=== PATIENT | female | born 1990 | race Caucasian/White ===

== ENCOUNTER 2019-07-27 17:26 | Emergency (ER) | payer OTHER ==
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
[2019-07-27 18:06] LABS: MUDS CUTOFF CONCENTRATIONS CUTOFF CONC BELOW:
[2019-07-27 18:07] LABS: BILIRUBIN,URINE NEGATIVE (NEGATIVE); GLUCOSE, URINE (UA) NEGATIVE (NEGATIVE); KETONES,URINE (UA) NEGATIVE (NEGATIVE); LEUKOCYTE ESTERASE, URINE NEGATIVE (NEGATIVE); NITRITE,URINE NEGATIVE (NEGATIVE); OCCULT BLOOD,URINE SMALL (NEGATIVE); PROTEIN,URINE NEGATIVE (NEGATIVE); UROBILINOGEN,URINE 0.2 (NORMAL) E.U./dL (NORMAL)
[2019-07-27 18:11] LABS: CLARITY,URINE HAZY (CLEAR); HCG UR QUAL NEGATIVE
[2019-07-27 18:12] LABS: BASOPHILS # (AUTO) 0.1 10^3/uL (0.0-0.1); EOSINOPHILS # (AUTO) 0.2 10^3/uL (0.0-0.7); EOSINOPHILS % (AUTO) 2.6 %; LYMPHOCYTES % (AUTO) 50.2 %; MEAN CORPUSCULAR HGB CONC 33.2 g/dL (32.0-36.0); MEAN CORPUSCULAR VOLUME 96.4 fL (81.0-99.0); MONOCYTES # (AUTO) 0.5 10^3/uL (0.0-1.0); MONOCYTES % (AUTO) 8.9 %; NEUTROPHILS # (AUTO) 2.2 10^3/uL (1.5-6.6); PLT - PLATELET COUNT 366 10^3/uL (130-450); RED BLOOD COUNT 4.69 10^6/uL (4.20-5.40); RED CELL DISTRIBUTION WIDTH 12.3 % (12.0-15.0); WHITE BLOOD COUNT 6.1 x10^3/uL (4.8-10.8)
[2019-07-27 18:17] LABS: BACTERIA,URINE Rare /HPF (None Seen); RBC,URINE 0-5 /HPF (0-5); SQUAMOUS EPITHELIAL CELL,UR FEW Squamous (<= Few)
[2019-07-27 18:20] LABS: AMPHETAMINE SCREEN,URINE NEGATIVE (NEGATIVE); BENZODIAZEPINES SCREEN, URINE NEGATIVE (NEGATIVE); COCAINE SCREEN URINE NEGATIVE (NEGATIVE); METHADONE SCREEN, URINE NEGATIVE (NEGATIVE); METHAMPHETAMINES SCREEN, URINE NEGATIVE (NEGATIVE); OPIATE SCREEN, URINE NEGATIVE (NEGATIVE); OXYCODONE SCREEN, URINE NEGATIVE (NEGATIVE); PROPOXYPHENE SCREEN, URINE NEGATIVE (NEGATIVE); TRICYCLIC ANTIDEPRESSANT,URINE NEGATIVE (NEGATIVE)
[2019-07-27 18:28] LABS: ACETAMINOPHEN < 10 ug/mL (10-30); ALBUMIN 4.5 g/dL (3.2-5.5); ALBUMIN/GLOBULIN RATIO 1.3 (1.0-2.2); ALKALINE PHOSPHATASE 91 IU/L (42-121); ALT ALANINE AMINOTRANSFERASE 23 IU/L (10-60); AST ASPARTATE AMINOTRANSFERASE 23 IU/L (10-42); BILIRUBIN,TOTAL 0.4 mg/dL (0.2-1.0); BUN - BLOOD UREA NITROGEN 13 mg/dL (6-20); CALCIUM 8.4 mg/dL (8.5-10.3); CARBON DIOXIDE - CO2 28 mmol/L (21-32); CHLORIDE 109 mmol/L (101-111); CREATININE 0.8 mg/dL (0.4-1.0); GFR - MDRD 84 (>89); GLUCOSE 94 mg/dL (70-100); LIPASE 37 U/L (22-51); SALICYLATE < 6.0 mg/dL; SODIUM 143 mmol/L (135-145)
--- NOTE | 2019-07-28 14:37 | ED Physician Documentation ---
ED Addendum - Addendum Addendum: 07/28/19 14:37 Patient accepted to [facility] by Dr. Montelongo 1425. COBRA forms filled out. This document was made in part using voice recognition software. While efforts are made to proofread this document, sound alike and grammatical errors may occur. 07/28/19 14:37 Departure - Departure Disposition: [facility]Unit DC/Xfer Clinical Impression: Suicidal ideation Condition: Stable
[2019-07-28 16:44] VITALS: BP 127/62
== END 2019-07-28 17:01 ==
LOC: ED 17:26
DX: F32.9 Major depressive disorder, single episode, unspecified (principal); R45.851 Suicidal ideations
CPT/HCPCS: 36415; 80053; 80306; 80307; 80320; 80329; 81001; 81003; 81025; 83690; 84443; 85025; 87086; 99283; 99285

== ENCOUNTER 2021-11-19 09:20 | Emergency (ER) | payer OTHER ==
[2021-11-19] MEDS ORDERED: HYDROcod/ACETAM 5/325 MG TABLET PO STA (10:09)
[2021-11-19] MEDS ORDERED: DEXAMETHASONE 10 MG/ML VIAL PO STA (10:09)
[2021-11-19] MEDS ORDERED: CHERRY SYRUP 10 ML UDC PO ONE (10:09)
[2021-11-19] MEDS ORDERED: ONDANSETRON ODT 4 MG TABLET TL STA (10:09)
--- NOTE | 2021-11-19 10:11 | ED Physician Documentation ---
PD HPI HEADACHE - Stated complaint Stated Complaint: HEADACHES,NAUSEA - Chief complaint Chief Complaint: Neuro - History obtained from History obtained from: Patient - History of Present Illness Timing - onset: How many days ago (2) Timing - onset during: Rest, Light activity Timing - duration: Days (2) Timing - details: Gradual onset, Still present, Waxing and waning Worst headache ever?: No: Worst headache ever? Location: Front Quality: Throbbing, Aching Associated symptoms: Nausea. No: Fever, Weakness, Numbness, Vision changes Improved by: No: Dark room Worsened by: No: Light Contributing factors: Recent illness (her spouse has had URI symptoms for several days, and patient feels she likely has viral illness causing symptoms. No history of migraines. [place] ill enough to not go to work, so mainly here for work note and eval. Declines IV/IM meds.) Similar symptoms before: Has not had sx before Recently seen: Not recently seen Review of Systems Constitutional: reports: Myalgias. denies: Fever, Chills Eyes: denies: Decreased vision, Photophobia Nose: reports: Sinus pressure / pain. denies: Rhinorrhea / runny nose, Congestion Throat: denies: Sore throat Respiratory: denies: Cough GI: reports: Nausea Neurologic: reports: Headache (frontal). denies: Focal weakness, Numbness PD PAST MEDICAL HISTORY - Past Medical History Past Medical History: Yes Cardiovascular: None Neuro: None Psych: Depression - Past Surgical History Past Surgical History: No - Present Medications Home Medications: Ambulatory Orders Medication Instructions Recorded Confirmed HYDROcod/ACETAM 5/325 [[place] 5/325] 1 ea PO Q6H PRN #10 tablet 11/19/21 Ondansetron Odt [Zofran] 4 mg TL Q6H PRN #10 tablet 11/19/21 dexAMETHasone [Decadron] 4 mg PO DAILY #3 tablet 11/19/21 - Allergies Allergies/Adverse Reactions: Allergies Allergy/AdvReac Type Severity Reaction Status Date / Time No Known Drug Allergies Allergy Verified 07/27/19 17:37 - Social History Does the pt smoke?: No Smoking Status: Never smoker Does the pt drink ETOH?: Yes Does the pt have substance abuse?: No PD ED PE NORMAL - Vitals Vital signs reviewed: Yes - General General: Alert and oriented X 3, No acute distress, Well developed/nourished - HEENT HEENT: PERRL, EOMI, Ears normal, Pharynx benign - Neck Neck: Supple, no meningeal sign, No adenopathy - Cardiac Cardiac: RRR, No murmur - Respiratory Respiratory: Clear bilaterally - Abdomen Abdomen: Soft, Non tender - Derm Derm: Normal color, Warm and dry - Neuro Neuro: Alert and oriented X 3, No motor deficit, Normal speech Eye Opening: Spontaneous Motor: Obeys Commands Verbal: Oriented GCS Score: 15 Results - Vitals Vitals: Oxygen O2 Source Room air PD MEDICAL DECISION MAKING - ED course Complexity details: considered differential (could be vascular such as migraine. Consider viral illness as patient suspects. ), d/w patient Departure - Departure Disposition: 01 Home, Self Care Clinical Impression: Frontal headache Nausea & vomiting Qualifiers: Vomiting type: unspecified Qualified Code(s): R11.2 - Nausea with vomiting, unspecified Condition: Stable Record reviewed to determine appropriate education?: Yes Instructions: ED Cephalgia Unspecified Follow-Up: [facility] [Provider Group] Prescriptions: dexAMETHasone [Decadron] 4 mg PO DAILY #3 tablet HYDROcod/ACETAM 5/325 [[place] 5/325] 1 ea PO Q6H PRN #10 tablet PRN Reason: Pain Ondansetron Odt [Zofran] 4 mg TL Q6H PRN #10 tablet PRN Reason: Nausea / Vomiting Comments: For now we will treat this as either a sinus headache with inflammation in the sinuses versus a functional headache such as migraine. We would treat these with nausea medicine anti-inflammatory and something for pain. I wrote prescriptions for Decadron steroid daily for 3 more days as well as ondansetron every 6 hours if needed for nausea. To that add Tylenol every 4-6 hours for headache or hydrocodone if needed for worse headache. Off work today and possibly tomorrow until this is improved. Return if persistent despite medications or if you develop worsening headache or other associated symptoms such as vision loss, focal weakness, fever, confusion or other concerns. [facility] I am prescribing a short course of narcotic pain medication for you. These are potentially dangerous and addictive medications that should be used carefully. These medications may constipate you. Take an [id number] stool softener such as docusate twice daily with plenty of water while taking these m edications. If you go 24 hours without a bowel movement, take [id number] MiraLAX, per package instructions. Do not drink or drive while taking these medications. If you received narcotic or sedating medications while in the emergency department do not drive for 24 hours. Store this medication in a safe, secure place and out of reach of children. It is a violation of federal law to give or sell this medication to another person or to use in a manner other than prescribed. The ED will not refill narcotic prescriptions, including prescriptions lost or stolen. You can dispose of unwanted medications at the [facility]'s office or at several pharmacies such as [facility]. Forms: Activity restrictions Discharge Date/Time: 11/19/21 10:26
[2021-11-19] MEDS ORDERED: ACETAMINOPHEN 325 MG TABLET PO STA (10:17)
[2021-11-19 10:26] VITALS: BP 124/74
== END 2021-11-19 10:26 | disposition home or self-care (01) ==
LOC: ED 09:20
DX: R51.9 Headache, unspecified (principal); R11.2 Nausea with vomiting, unspecified
CPT/HCPCS: 99282; 99283; A9270; Q0162

== ENCOUNTER 2022-10-28 07:13 | Emergency (ER) | payer OTHER ==
--- NOTE | 2022-10-28 07:41 | ED Physician Documentation ---
PD HPI NVD - Stated complaint Stated Complaint: VOMITING/FATIGUE/DIARRHEA - Chief complaint Chief Complaint: Abd Pain - History obtained from History obtained from: Patient - History of Present Illness Timing - onset: Yesterday Timing - details: Abrupt onset, Still present Associated symptoms: Abdominal pain (intermittent cramping) Contributing factors: Bad food (she states was at [employer] party 3 days ago but not aware of anyone else sick.). No: Sick contact, Travel Improved by: No: Vomiting Worsened by: Eating Similar symptoms before: Has not had sx before Review of Systems Constitutional: denies: Fever, Chills Nose: denies: Rhinorrhea / runny nose, Congestion Throat: denies: Sore throat Respiratory: denies: Cough GI: reports: Abdominal Pain (intermittent cramping, not consistent.), Nausea, Vomiting, Diarrhea (loose small amount). denies: Hematemesis PD PAST MEDICAL HISTORY - Past Medical History Cardiovascular: None Neuro: None Psych: Depression - Past Surgical History Past Surgical History: No - Present Medications Home Medications: Ambulatory Orders Medication Instructions Recorded Confirmed Ondansetron Odt [Zofran] 4 mg TL Q6H PRN #10 tablet 10/28/22 Promethazine [Phenergan] 25 mg PO Q6H PRN #10 tab 10/28/22 - Allergies Allergies/Adverse Reactions: Allergies Allergy/AdvReac Type Severity Reaction Status Date / Time No Known Drug Allergies Allergy Verified 10/28/22 07:33 - Social History Does the pt smoke?: No Smoking Status: Never smoker Does the pt drink ETOH?: Yes Does the pt have substance abuse?: No PD ED PE NORMAL - Vitals Vital signs reviewed: Yes - General General: Alert and oriented X 3, No acute distress, Well developed/nourished - Cardiac Cardiac: RRR (mild tachycardic), No murmur - Respiratory Respiratory: Clear bilaterally - Abdomen Abdomen: Normal bowel sounds, Soft, Non tender, Non distended, No organomegaly - Derm Derm: Normal color, Warm and dry Results - Vitals Vitals: Vital Signs - 24 hr 10/28/22 10/28/22 07:20 09:30 Temperature 36.8 C Heart Rate 104 H 86 Respiratory 14 16 Rate Blood Pressure 141/99 H 130/82 H O2 Saturation 98 96 Oxygen O2 Source Room air PD Medical Decision Making - ED course Complexity details: re-evaluated patient (patient prefers to try po meds and not iv fluids/meds. She did have vomiting soon after first dose of Zofran, but too soon to see if had effect. Given second dose and seemed a bit better, and able to take fluids. she prefers home with scripts and see how it goes for the morning/afternoon. ), considered differential (seems likely viral GE. No abd tenderness to suggest appendicitis, galllbladder, focal colitis, diverticulitis. Can treat with symptoms meds. Patient would rather not have IV. ), d/w patient Departure - Departure Disposition: Home, Self Care Clinical Impression: Nausea vomiting and diarrhea Condition: Stable Record reviewed to determine appropriate education?: Yes Instructions: ED Diet Vomiting Diarrhea Follow-Up: [facility] [Provider Group] Prescriptions: Promethazine [Phenergan] 25 mg PO Q6H PRN #10 tab PRN Reason: Nausea / Vomiting Ondansetron Odt [Zofran] 4 mg TL Q6H PRN #10 tablet PRN Reason: Nausea / Vomiting Comments: Presume this is a viral type illness and most commonly the symptoms will be just 2 or 3 days. Rest at home today and small frequent fluids and bland food. Ondansetron and/or Phenergan every 6 hours if needed for nausea. Antacid such as Maalox or Mylanta can be helpful as well for the upset stomach. Tylenol every 4-6 hours if needed for aches or fevers. Recheck if not improved over the next day or so. I sent your prescriptions to the [facility] pharmacy here in [place]. Forms: Activity restrictions Discharge Date/Time: 10/28/22 10:01
[2022-10-28] MEDS: ONDANSETRON ODT 4 MG TABLET TL STA ×2 (08:03→08:40)
[2022-10-28 09:31] VITALS: BP 130/82
[2022-10-28] MEDS: MAG HYDROX/AL HYDROX/SIMETH 30 ML UDC PO STA (09:33)
== END 2022-10-28 10:01 | disposition home or self-care (01) ==
LOC: ED 07:13
DX: R11.2 Nausea with vomiting, unspecified (principal); R10.9 Unspecified abdominal pain; R19.7 Diarrhea, unspecified
CPT/HCPCS: 99283; Q0162

== ENCOUNTER 2023-02-10 14:23 | Emergency (ER) | payer OTHER ==
[2023-02-10] MEDS ORDERED: SODIUM CHLORIDE 0.9% 1,000 ML IV STA (14:55)
[2023-02-10 14:58] LABS: BASOPHILS # (AUTO) 0.1 10^3/uL (0.0-0.1); BASOPHILS % (AUTO) 0.7 %; EOSINOPHILS % (AUTO) 0.4 %; HCT - HEMATOCRIT 45.8 % (37.0-47.0); HGB - HEMOGLOBIN 15.6 g/dL (12.0-16.0); LYMPHOCYTES # (AUTO) 2.1 10^3/uL (1.5-3.5); LYMPHOCYTES % (AUTO) 22.9 %; MEAN CORPUSCULAR HEMOGLOBIN 31.2 pg (27.0-31.0); MEAN CORPUSCULAR HGB CONC 34.1 g/dL (32.0-36.0); MEAN CORPUSCULAR VOLUME 91.6 fL (81.0-99.0); MONOCYTES # (AUTO) 0.6 10^3/uL (0.0-1.0); MONOCYTES % (AUTO) 7.1 %; NEUTROPHILS # (AUTO) 6.2 10^3/uL (1.5-6.6); NEUTROPHILS % (AUTO) 68.7 %; PLT - PLATELET COUNT 374 10^3/uL (130-450); RED CELL DISTRIBUTION WIDTH 12.2 % (12.0-15.0)
--- NOTE | 2023-02-10 14:59 | ED Physician Documentation ---
History of Present Illness - Stated complaint Stated Complaint: HEART PALPITATIONS - Chief complaint Chief Complaint: Cardiac - Additonal information Additional information: 33-year-old female presents to the emergency department for evaluation of nausea, tachycardia, dizziness and shaking. She states that the symptoms have been present for about 1 week. They started after she began taking citalopram 3 weeks ago for anxiety and depression. She does state that since beginning citalopram she has had increased anxiety depression and some passive thoughts of suicide but no plan. She also has started to drink heavier than she typically would. She consumed 750 mL of liquor yesterday evening. She states she is drinking on average of 500ml to 1 L of hard liquor every day or every other day for about the last 8 months. Denies any history of withdrawal symptoms with alcohol cessation. Patient last took her citalopram 4 days ago. Reports she had a manic episode and threw the pills away Patient is denying chest pain. She does have some mild shortness of air. Nonpleuritic. Review of Systems Constitutional: reports: Fever, Fatigue Cardiac: reports: Palpitations Respiratory: reports: Dyspnea. denies: Cough, Hemoptysis, Wheezing GI: reports: Reviewed and negative : reports: Reviewed and negative Skin: reports: Reviewed and negative PD PAST MEDICAL HISTORY - Past Medical History Cardiovascular: None Neuro: None Psych: Depression - Past Surgical History Past Surgical History: No - Present Medications Home Medications: Ambulatory Orders Medication Instructions Recorded Confirmed Ondansetron Odt [Zofran] 4 mg TL Q6H PRN #10 tablet 10/28/22 Promethazine [Phenergan] 25 mg PO Q6H PRN #10 tab 10/28/22 LORazepam [Lorazepam] 1 mg PO QID PRN #10 tab 02/10/23 - Allergies Allergies/Adverse Reactions: Allergies Allergy/AdvReac Type Severity Reaction Status Date / Time No Known Drug Allergies Allergy Verified 10/28/22 07:33 - Social History Does the pt smoke?: No Smoking Status: Never smoker Does the pt drink ETOH?: Yes Does the pt have substance abuse?: No PD ED PE NORMAL - General General: Alert and oriented X 3, No acute distress - HEENT HEENT: Atraumatic, Moist mucous membranes - Neck Neck: Supple, no meningeal sign, No adenopathy - Cardiac Cardiac: RRR (Sinus tachycardia on the monitor resting rate of 110.), No murmur, Strong equal pulses - Respiratory Respiratory: No respiratory distress, Clear bilaterally - Abdomen Abdomen: Normal bowel sounds, Soft - Back Back: No CVA TTP - Derm Derm: Normal color, Warm and dry, No rash - Extremities Extremities: No deformity - Neuro Neuro: Alert and oriented X 3, 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 Relevant findings are: Rate: Rate (enter#) (101) Rhythm: Sinus tachycardia [place]: RAD Intervals: Normal LA QRS: Normal Ischemia: Normal ST segments Compare to prior EKG: Old EKG unavailable Computer interpretation: Agree with computer - Labs Labs: Laboratory Tests 02/10/23 02/10/23 02/10/23 14:52 14:52 14:52 WBC 9.0 RBC 5.00 Hgb 15.6 Hct 45.8 MCV 91.6 MCH 31.2 H MCHC 34.1 RDW 12.2 Plt Count 374 MPV 10.0 Neut # (Auto) 6.2 Lymph # (Auto) 2.1 Bowman # (Auto) 0.6 Eos # (Auto) 0.0 Baso # (Auto) 0.1 Absolute Nucleated RBC 0.00 Nucleated RBC % 0.0 Sodium 138 Potassium 4.0 Chloride 104 Carbon Dioxide 24 Anion Gap 10.0 BUN 10 Creatinine 0.9 Estimated GFR (MDRD) 72 L Glucose 105 H Lactic Acid Calcium 8.9 Total Bilirubin 0.6 AST 47 H ALT 63 H Alkaline Phosphatase 77 Total Creatine Kinase 82 Total Protein 8.2 Albumin 4.3 Globulin 3.9 Albumin/Globulin Ratio 1.1 Lipase 26 TSH 2.60 Free T4 0.87 Salicylates < 6.0 Urine Opiates Screen Ur Oxycodone Screen Urine Methadone Screen Ur Propoxyphene Screen Acetaminophen < 10 L Ur Barbiturates Screen Ur Tricyclics Screen Ur Phencyclidine Scrn Ur Amphetamine Screen U Methamphetamines Scrn U Benzodiazepines Scrn Urine Cocaine Screen U Cannabinoids Screen Ethyl Alcohol < 5.0 02/10/23 02/10/23 14:52 15:00 WBC RBC Hgb Hct MCV MCH MCHC RDW Plt Count MPV Neut # (Auto) Lymph # (Auto) Bowman # (Auto) Eos # (Auto) Baso # (Auto) Absolute Nucleated RBC Nucleated RBC % Sodium Potassium Chloride Carbon Dioxide Anion Gap BUN Creatinine Estimated GFR (MDRD) Glucose Lactic Acid 1.6 Calcium Total Bilirubin AST ALT Alkaline Phosphatase Total Creatine Kinase Total Protein Albumin Globulin Albumin/Globulin Ratio Lipase TSH Free T4 Salicylates Urine Opiates Screen NEGATIVE Ur Oxycodone Screen NEGATIVE Urine Methadone Screen NEGATIVE Ur Propoxyphene Screen NEGATIVE Acetaminophen Ur Barbiturates Screen NEGATIVE Ur Tricyclics Screen NEGATIVE Ur Phencyclidine Scrn NEGATIVE Ur Amphetamine Screen NEGATIVE U Methamphetamines Scrn NEGATIVE U Benzodiazepines Scrn NEGATIVE Urine Cocaine Screen NEGATIVE U Cannabinoids Screen NEGATIVE Ethyl Alcohol - Rads (name of study) cxr Relevant Findings:: Final report received (No acute cardiopulmonary process) PD Medical Decision Making - ED course Complexity details: reviewed results, re-evaluated patient, considered differential, d/w patient ED course: 33-year-old female presents emergency department for evaluation of tachycardia, anxiety and dizziness. She does have a longstanding history of untreated anxiety and depression. She also has a longstanding history of alcohol abuse. About 3 weeks ago her primary care provider started her on citalopram 20 mg each day which she began taking. About 2 weeks after starting to take it she was having increasing anxiety, depression. She has begun to drink more. She is having passive thoughts of suicide but no plan or actual intent. Patient stopped taking the citalopram 4 days ago. She presents to the emergency depa rtment restless, with some tachycardia and dizziness. On presentation she is alert and well-appearing. She has no fever. She has no focal neurodeficits. On presentation to the emergency department her heart rate was initially 130 but on EKG it was 101. While in bed it has vacillated between 90 and 110. I obtained CBC, electrolytes, troponin, CK, lactic acid, urine drug screen, Tylenol, salicylates and an alcohol level. Per my interpretation these are all essentially negative though she does have a very mild LFT abnormality. This is likely due to heavy alcohol use And is likely a mild alcoholic hepatitis. Patient has no abdominal pain and given lack of fever, leukocytosis, altered mentation I did defer advanced imaging. Here in the emergency department she had an initial CIWA of 5. Her alcohol level was undetectable. Clinically I do not believe that she is in alcohol withdrawal. I also considered serotonin syndrome as a cause of her symptoms but the patient has not taken the citalopram now for 4 days. She has no hyperthermia. She has no altered mentation. I think serotonin syndrome is unlikely at this juncture. Clinically I believe much of the symptoms are related to alcohol abuse. Patient was administered a liter of IV fluids as well as 1 mg of Ativan. Patient states that she is feeling better. Patient is scheduled to see a primary care provider on Wednesday. In the interim I am going to discharge her with a prescription for Ativan to be used as needed. She is going to be advised to stop taking the citalopram. Her goal is to enter into alcohol rehab which she is going to ask her primary care doctor for help with. Departure - Departure Disposition: Home, Self Care Clinical Impression: Alcohol abuse, Anxiety and depression, Abnormal LFTs Condition: Stable Record reviewed to determine appropriate education?: Yes Instructions: BENZ[place]ZEPIN[place], General, Withdrawal Alcohol What Expect Prescriptions: LORazepam [Lorazepam] 1 mg PO QID PRN #10 tab PRN Reason: Alcohol Withdrawal Comments: Dory you came to the emergency department because you have been having anxiety, depression, palpitations, dizziness. You were started recently on citalopram but stopped taking it 4 days ago. In the interim you have found that your anxiety and depression has worsened. You have also begun to drink much heavier than you previously were. Here in the emergency department your labs were all essentially normal with the exception of some very mild LFT abnormalities. This is most likely due to alcohol abuse. Here in the emergency department after a period of time in observation it has become apparent that you do not have serotonin syndrome as a cause of your symptoms, especially since you have not taken the citalopram now for 4 days. You also had a low CIWA score which makes acute alcohol withdrawal unlikely but not totally ruled out. It is very important you continue to follow with your primary doctor on Wednesday as scheduled. You would benefit from alcohol rehabilitation. He would also benefit from talk therapy to discuss your anxiety and depression. Because you have not taken the citalopram for 4 days I recommend that you do not resume taking it. Please talk with your doctor about other ways to manage the anxiety and depression in the interim. I am prescribing a limited amount of Ativan that can be used as needed over the next several days should you have any acutely worsening anxiety or tremors or return of similar symptoms. I am encouraging you to consider your alcohol use. Abrupt cessation of alcohol can be dangerous and life-threatening. If you begin to experience severe shakes, tremors, have uncontrolled nausea or vomiting, have uncontrolled headaches or any altered mental status you should return immediately to the ER for repeat evaluation
--- NOTE | 2023-02-10 15:05 | XRAY Report ---
PROCEDURE: Chest 1 View X-Ray INDICATIONS: Chest Pain TECHNIQUE: One view of the chest was acquired. COMPARISON: None. FINDINGS: Surgical changes and devices: None. Lungs and pleura: No pleural effusions or pneumothorax. Lungs are clear. Mediastinum: Mediastinal contours appear normal. Heart size is normal. Bones and chest wall: No suspicious bony lesions. Overlying soft tissues appear unremarkable. IMPRESSION: No acute cardiopulmonary process. Reviewed by: Adebayo Cao MD on 02/10/2023 3:04 PM PDT Approved by: Adebayo Cao MD on 02/10/2023 3:04 PM PDT Station ID: [id number]
[2023-02-10 15:07] LABS: MUDS CUTOFF CONCENTRATIONS CUTOFF CONC BELOW:
[2023-02-10 15:21] LABS: ACETAMINOPHEN < 10 ug/mL (10-30); ALBUMIN 4.3 g/dL (3.2-5.5); ALBUMIN/GLOBULIN RATIO 1.1 (1.0-2.2); ALKALINE PHOSPHATASE 77 IU/L (42-121); ALT ALANINE AMINOTRANSFERASE 63 IU/L (10-60); AST ASPARTATE AMINOTRANSFERASE 47 IU/L (10-42); BILIRUBIN,TOTAL 0.6 mg/dL (0.2-1.0); BUN - BLOOD UREA NITROGEN 10 mg/dL (6-20); CALCIUM 8.9 mg/dL (8.5-10.3); CARBON DIOXIDE - CO2 24 mmol/L (21-32); CHLORIDE 104 mmol/L (101-111); CK- CREATINE KINASE 82 IU/L (22-269); CREATININE 0.9 mg/dL (0.4-1.0); ETOH - ETHANOL < 5.0 mg/dL; GFR - MDRD 72 (>89); GLUCOSE 105 mg/dL (70-100); LIPASE 26 U/L (22-51); SALICYLATE < 6.0 mg/dL; SODIUM 138 mmol/L (135-145); TOTAL PROTEIN 8.2 g/dL (6.7-8.2)
[2023-02-10 15:26] LABS: AMPHETAMINE SCREEN,URINE NEGATIVE (NEGATIVE); BARBITURATE SCREEN,UR NEGATIVE (NEGATIVE); BENZODIAZEPINES SCREEN, URINE NEGATIVE (NEGATIVE); COCAINE SCREEN URINE NEGATIVE (NEGATIVE); METHADONE SCREEN, URINE NEGATIVE (NEGATIVE); METHAMPHETAMINES SCREEN, URINE NEGATIVE (NEGATIVE); OPIATE SCREEN, URINE NEGATIVE (NEGATIVE); OXYCODONE SCREEN, URINE NEGATIVE (NEGATIVE); PROPOXYPHENE SCREEN, URINE NEGATIVE (NEGATIVE); THC CANNABINOID SCREEN, URINE NEGATIVE (NEGATIVE); TRICYCLIC ANTIDEPRESSANT,URINE NEGATIVE (NEGATIVE)
[2023-02-10 15:29] LABS: THYROID STIMULATING HORMONE 2.6 uIU/mL (0.34-5.60)
[2023-02-10 15:31] LABS: FREE T4 (FREE THYROXINE) 0.87 ng/dL (0.58-1.64)
[2023-02-10] MEDS ORDERED: LORazepam 2 MG/ML VIAL IVP STA (16:04)
[2023-02-10 16:58] VITALS: BP 138/78
== END 2023-02-10 17:01 | disposition home or self-care (01) ==
LOC: ED 14:23
DX: F10.10 Alcohol abuse, uncomplicated (principal); F41.9 Anxiety disorder, unspecified; R79.89 Other specified abnormal findings of blood chemistry
CPT/HCPCS: 36415; 71045; 80053; 80306; 80307; 80320; 80329; 82550; 83605; 83690; 84439; 84443; 85025; 93005; 96374; 99284; J2060